=== PATIENT | female | born 1980 | race African-American/Black ===

== ENCOUNTER 2019-02-08 13:32 | Emergency (ER) | payer MEDICAID ==
[~2019-02-08] VITALS: Ht 185.4 cm; Wt 120.0 kg
[2019-02-08] MEDS ORDERED: KETOROLAC 30MG/ML VIAL IM ONE (15:30)
[2019-02-08 16:13] VITALS: BP 184/88
== END 2019-02-08 18:17 | disposition home or self-care (01) ==
LOC: ER 13:32
DX: M54.5 Low back pain (principal); M25.561 Pain in right knee; M25.461 Effusion, right knee; J45.909 Unspecified asthma, uncomplicated; I10 Essential (primary) hypertension; F17.200 Nicotine dependence, unspecified, uncomplicated; Z98.1 Arthrodesis status; Z96.651 Presence of right artificial knee joint; W18.39XA Other fall on same level, initial encounter; Y93.01 Activity, walking, marching and hiking; Y92.89 Other specified places as the place of occurrence of the external cause; Y99.8 Other external cause status
CPT/HCPCS: 72110; 81025; 96372; 99283; J1885